=== PATIENT | male | born 1975 | race Caucasian/White ===

== ENCOUNTER 2020-01-22 05:49 | Emergency (ER) | payer OTHER ==
[~2020-01-22] VITALS: Ht 193 cm; Wt 89.8 kg
[2020-01-22] MEDS ORDERED: LIDOCAINE 2% JEL UROJET 10 ML MM ONE ×2 (05:58→06:00)
--- NOTE | 2020-01-22 06:14 | NUR ---
PATIENT CAME TO ER BED 2 C/O LOWER ABDOMINAL PRESSURE PAIN SINCE 1x HOUR AGO COIL BUILDER. 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 PATIENT IS UNABLE TO OBTAIN URINE THROUGH SELF-CATHETERIZATION. PATIENT IS AAOX4. NO SOB. BREATHING EVENLY AND UNLABORED ON ROOM AIR. CONNECTED TO MONITOR.
--- NOTE | 2020-01-22 06:17 | NUR ---
URINE COLLECTED AND SENT TO THE LAB.
[2020-01-22 07:04] LABS: BASOPHILS % (AUTO) 0.4 % (0.0-2.0); EOSINOPHILS % (AUTO) 0.6 % (0.0-6.0); HEMATOCRIT 46 % (39-51); HEMOGLOBIN 15.7 g/dL (13.5-17.5); LYMPHOCYTES # (AUTO) 0.9 /CMM (0.8-4.8); LYMPHOCYTES % (AUTO) 8.8 % (20.0-44.0); MEAN CORPUSCULAR HGB CONC 34 g/dl (31.0-36.0); MEAN CORPUSCULAR VOLUME 90 fL (80-96); MONOCYTES # (AUTO) 0.7 /CMM (0.1-1.30); MONOCYTES % (AUTO) 6.9 % (2.0-12.0); NEUTROPHILS # (AUTO) 8.7 /CMM (1.8-8.9); NEUTROPHILS % (AUTO) 83.3 % (43.0-81.0); PLATELET COUNT (AUTO) 176 /CMM (150-450); RED BLOOD CELL COUNT(AUTO) 5.07 MIL/uL (4.5-6.0); WHITE BLOOD COUNT (AUTO) 10.4 K/uL (4.3-11.0)
[2020-01-22 07:21] LABS: ALBUMIN 3.4 g/dL (3.4-5.0); BILIRUBIN,DIRECT 0.1 mg/dL (0.0-0.2); BILIRUBIN,TOTAL 0.3 mg/dL (0.2-1.0); CALCIUM, SERUM 8.6 mg/dL (8.5-10.1); CREATININE 1.2 mg/dL (0.6-1.3); POTASSIUM 3.5 mmol/L (3.5-5.1); TOTAL PROTEIN, SERUM 6.2 g/dL (6.4-8.2)
--- NOTE | 2020-01-22 07:31 | NUR ---
RADIOLOGY CALLED, TECH WILL COME TO TAKE PATIENT TO CT.
--- NOTE | 2020-01-22 07:33 | NUR ---
PT IS WHEELED TO CT SCAN VIA [facility].
[2020-01-22 07:34] LABS: APPEARANCE,URINE SL CLOUDY (CLEAR); BILIRUBIN,URINE NEGATIVE (NEGATIVE); BLOOD, URINE LARGE Ery/uL (NEGATIVE); COLOR,URINE YELLOW (YELLOW); KETONES,URINE NEGATIVE (NEGATIVE); LEUKOCYTE ESTERASE ,URINE TRACE (NEGATIVE); NITRITE, URINE NEGATIVE (NEGATIVE); PROTEIN,URINE TRACE mg/dl (NEGATIVE); UGLUCOSE NEGATIVE (NEGATIVE); UROBILINOGEN,URINE 0.2 EU/dL (0.2)
--- NOTE | 2020-01-22 07:39 | NUR ---
ASSESSED PT ON BED. AWAKE AND ALERT X 4. NOT IN RESPIRATORY DISTRESS, V/S STABLE, KEPT RESTED AND COMFORTABLE. WILL CONTINUE TO MONITOR.
[2020-01-22 07:49] LABS: RBC,URINE 21-50 /HPF (0-2)
[2020-01-22 07:50] LABS: BACTERIA,URINE Rare /HPF (None Seen); SQUAMOUS EPITHELIAL CELL,UR Rare /HPF (None Seen)
[2020-01-22] MEDS ORDERED: HYDROMORPHONE 1 MG/1 ML DISP.SYRIN ONE (08:53)
[2020-01-22] MEDS ORDERED: HYDROMORPHONE INJ 0.5 MG/0.5 ML SYRINGE IM ONE (09:00)
--- NOTE | 2020-01-22 09:00 | NUR ---
PT INSISTED TO KEEP THE FELIZ CLEMENT MD AWARE.
--- NOTE | 2020-01-22 09:13 | NUR ---
Patient discharged to home in stable condition. Written and verbal after care instructions given. Patient verbalizes understanding of instruction.
[2020-01-22 09:14] VITALS: BP 129/88
== END 2020-01-22 09:15 | disposition home or self-care (01) ==
LOC: ER 05:51
DX: R33.9 Retention of urine, unspecified (principal); Z88.1 Allergy status to other antibiotic agents
CPT/HCPCS: 36415; 51702; 74176; 80048; 80076; 81001; 83690; 85025; 96372; 99284; J1170; J3490; 81000-TC

== ENCOUNTER 2020-03-24 10:12 | Emergency (ER) | payer OTHER ==
[~2020-03-24] VITALS: Ht 193 cm; Wt 92.1 kg
[2020-03-24 10:22] VITALS: BP 142/94
== END 2020-03-24 12:10 | disposition home or self-care (01) ==
LOC: ER 10:20
DX: S52.121A Displaced fracture of head of right radius, initial encounter for closed fracture (principal); S93.492A Sprain of other ligament of left ankle, initial encounter; S80.212A Abrasion, left knee, initial encounter; S80.211A Abrasion, right knee, initial encounter; Z85.51 Personal history of malignant neoplasm of bladder; Z88.1 Allergy status to other antibiotic agents; W01.0XXA Fall on same level from slipping, tripping and stumbling without subsequent striking against object, initial encounter; Y93.01 Activity, walking, marching and hiking; Y92.89 Other specified places as the place of occurrence of the external cause; Y99.8 Other external cause status
CPT/HCPCS: 51702; 73080; 73610; 99284; A6403

== ENCOUNTER 2021-01-13 09:06 | Emergency (ER) | payer OTHER ==
[~2021-01-13] VITALS: Ht 193 cm; Wt 90.7 kg
--- NOTE | 2021-01-13 09:15 | NUR ---
Patient bibs c/o left arm pain s/p fall from running yesterday. aox4, no sob noted, no s/o any acute distress. able to verbalize needs. states" left arm pain is 3/10 now and can go up to 10/10 [address] Dr Peña at bedside. will continue with plan of care
[2021-01-13] MEDS ORDERED: IBUP-1955 PO (10:21)
[2021-01-13] MEDS ORDERED: KETOROLAC TROMETHAMINE 15 MG/ML VIAL ONE (10:29)
[2021-01-13] MEDS ORDERED: KETOROLAC TROMETHAMINE INJ 30 MG/ML VIAL IM ONE (10:30)
--- NOTE | 2021-01-13 11:00 | NUR ---
patient left arm splinted in long arm sugar tong splint at this time
[2021-01-13 11:04] VITALS: BP 138/87
--- NOTE | 2021-01-13 11:04 | NUR ---
Patient discharged to home in stable condition. Written and verbal after care instructions given. Patient verbalizes understanding of instruction.
== END 2021-01-13 11:05 | disposition home or self-care (01) ==
LOC: ER 09:06
DX: S52.122A Displaced fracture of head of left radius, initial encounter for closed fracture (principal); Z88.1 Allergy status to other antibiotic agents; W01.0XXA Fall on same level from slipping, tripping and stumbling without subsequent striking against object, initial encounter; Y93.02 Activity, running; Y92.89 Other specified places as the place of occurrence of the external cause; Y99.8 Other external cause status
CPT/HCPCS: 29105; 73080; 73090; 96372; 99284; J1885